=== PATIENT | male | born 1945 | race Caucasian/White ===

== ENCOUNTER 2017-04-25 19:28 | Observation (INO) | payer MEDICARE ==
--- NOTE | 2017-04-25 19:54 | Emergency Department Record ---
History of Present Illness - General Chief Complaint: Chest Pain Stated Complaint: DIZZY/ GERMAN Time Seen by Provider: 04/25/17 19:50 Source: Patient, Family Mode of Arrival: Ambulatory Limitations: No limitations - History of Present Illness Initial Comments: The patient is here with family due to developing CP about an hour ago. He was bending over and then stood up and appeared dizzy and stated he felt like his chest hurt. His family also noted that he appeared to have mild GERMAN. The symptoms only lasted a few minutes and then resolved. The patient now denies any pain, discomfort, or GERMAN. The patient has a hx of being mentally challenged so the hx from him is limited. He has no hx of any cardiac issues and has had no recent illnesses. MD Complaint: Chest pain Onset/Timin -: Minutes(s) Pain Location: Substernal Quality: Heaviness - Related Data Allergies Allergy/AdvReac Type Severity Reaction Status Date / Time No Known Drug Allergies Allergy Unknown Verified 06/22/14 15:41 [NO KNOWN DRUG ALLERGIES] Travel Screening - Travel/Exposure Within Last 30 Days Have you traveled within the last 30 days?: No Review of Systems Constitutional: Denies: Chills, Fever Eyes: Denies: Eye discharge ENT: Denies: Congestion Respiratory: Denies: Cough, Dyspnea Past Medical History - SOCIAL HISTORY Smoking Status: Never smoker Alcohol Use: None Drug Use: None - RESPIRATORY Hx Respiratory Disorders: No - CARDIOVASCULAR Hx Cardio Disorders: No - NEURO Hx Neuro Disorders: Yes Hx Brain Tumor: No Hx CVA: No Hx Dementia: No Hx Dizziness: No Hx Headaches: No Hx Neuropathy: No Hx Parkinson's Disease: No Hx Seizures: No Hx Speech Problem: No Hx TIA: No Comment:: developmentally disabled - GI Hx GI Disorders: Yes Hx Reflux: Yes - Hx Genitourinary Disorders: No - ENDOCRINE Hx Endocrine Disorders: No - MUSCULOSKELETAL Hx Musculoskeletal Disorders: No - PSYCH Hx Psych Problems: Yes Hx Behavior Problems: Yes (takes meds) - HEMATOLOGY/ONCOLOGY Hx Hematology/Oncology Disorders: No Family Medical History Any Significant Family History?: Yes Family Hx Comment (NOT TO BE USED IN PLACE OF ITEMS BELOW): Parkinson's disease Hx Anxiety: Mother Hx Cancer: Mother Hx Depression: Mother Hx Liver Disease: Mother Physical Exam - General General Appearance: Alert, Cooperative, No acute distress - Head Head exam: Atraumatic, Normocephalic - Eye Eye exam: Normal appearance, PERRL - ENT Throat exam: Normal inspection. negative: Tonsillar erythema, Tonsillar exudate - Neck Neck exam: Normal inspection, Full ROM. negative: Tenderness - Respiratory Respiratory exam: Normal lung sounds bilaterally. negative: Respiratory distress - Cardiovascular Cardiovascular Exam: Regular rate, Normal rhythm, Normal heart sounds - GI/Abdominal GI/Abdominal exam: Soft, Normal bowel sounds. negative: Tenderness - Extremities Extremities exam: Normal inspection, Full ROM, Normal capillary refill. negative: Tenderness - Neurological Neurological exam: Alert. negative: Motor sensory deficit Course Vital Signs 04/25/17 19:41 Temperature 97.6 F Pulse Rate [ 73 Torch Straightener ] Respiratory 18 Rate Blood Pressure 177/91 [Left Arm] Pulse Ox 98 - Reevaluation(s) Reevaluation #1: The patient is doing very well at this time. He is resting comfortably in no distress. The pain seems to be intermittent and presently is gone. 04/25/17 20:26 Reevaluation #2: The patient is doing very well. He is pain free at this time. I did explain the results to the patient and family and did recommend a short stay admission for monitoring and further blood testing. The family did agree to the plan. I also did discuss the case with Faby PEÑA) and she did accept the admission. 04/25/17 21:18 Medical Decision Making - Data Complexity MDM Data: Labs Ordered and/or Reviewed, X-Ray Ordered and/or Reviewed, EKG Ordered and/or Reviewed - Lab Data Result diagrams: 04/25/17 20:00 04/25/17 20:00 - EKG Data -: EKG Interpreted by Me EKG: No Acute Changes, Unchanged From Previous - Radiology Data Radiology results: Report reviewed (CXR: Neg per rad.) Disposition Disposition: Admit Clinical Impression: Chest pain at rest Disposition: Still a Patient at [facility] Decision to Admit: Admit from ER Decision to Admit Date: 04/25/17 Decision to Admit Time: 21:19 Accepting Physician: Paige Time Discussed w/Accepting Physician: 21:19 Condition: (2) Stable Time of Disposition: 21:19 Quality - Quality Measures Quality Measures: N/A - Blood Pressure Screening View Details: Yes Does Patient Have Any of the Following: No Blood Pressure Classification: Pre-Hypertensive BP Reading Systolic Measurement: 157 Diastolic Measurement: 80 Screening for High Blood Pressure: < Pre-Hypertensive BP, F/U Documented > [ [id number]] Pre-Hypertensive Follow-up Interventions: Referral to alternative/primary care provider.
[2017-04-25 20:09] LABS: BASO % 0.3 % (0-6); EOS % 1.4 % (0-6); GRAN % 70.2 % (47-80); HEMATOCRIT 42.9 % (42.0-52.0); HEMOGLOBIN 14.3 gm/dl (14.0-18.0); LYMPH % 19.9 % (16-45); MEAN CELL VOLUME 88.1 fl (81-97); MEAN CORPUSCULAR HEMOGLOBIN 29.4 pg (27-33); MEAN CORPUSCULAR HGB CONC 33.3 g/dl (32-36); MEAN PLATELET VOLUME 9.2 fl (7.4-10.4); MONO % 8.2 % (0-9); PLATELET COUNT 301 K/uL (130-400); RED BLOOD COUNT 4.87 M/uL (4.40-5.70); RED CELL DISTRIBUTION WIDTH 14.2 % (11.5-14.5); WHITE BLOOD COUNT W/O DIFF 8.6 K/uL (4.2-12.2)
[2017-04-25 20:21] LABS: BLOOD UREA NITROGEN 26 mg/dL (8-23); CREATININE 1.1 mg/dL (0.7-1.2); EST GLOMERULAR FILTRATION RATE > 60 mL/min; INR 0.94; PARTIAL THROMBOPLASTIN TIME 24.5 SECONDS (24.5-39.1); PROTHROMBIN TIME (PATIENT) 10.1 SECONDS (9.5-12.1)
[2017-04-25 20:24] LABS: GLUCOSE,RANDOM 117 mg/dL (74-109)
[2017-04-25 20:27] LABS: CREATINE PHOSPHOKINASE 61 U/L (39-308)
[2017-04-25] MEDS ORDERED: ASPIRIN 325 MG TABLET PO ONE (21:00)
--- NOTE | 2017-04-25 21:15 | RADIOLOGY REPORT ---
EXAM: CHEST 2 VIEWS HISTORY: PATIENT HAS SHORTNESS OF BREATH, FAINTING. MEDIASTINAL CHEST PAIN. TECHNIQUE: Two views of the chest are provided without comparison examinations. FINDINGS: The cardiac silhouette is within normal limits for size and contour. Mild ectasia of the thorcic aorta is noted. There is no radiographic evidence of a focal infiltrate, pleural effusion, or pneumothorax. IMPRESSION: NO RADIOGRAPHIC EVIDENCE OF AN ACUTE INTRATHORACIC PROCESS. JOB NUMBER: [id number] MTDD
[2017-04-25] MEDS ORDERED: ACETAMINOPHEN 500 MG TABLET PO PRN (22:24)
[2017-04-25] MEDS ORDERED: FLU VAC QS 2017-18 (INPT, 6MO+) 60MCG/0.5ML IM ONE (22:48)
[2017-04-26] MEDS ORDERED: PANTOPRAZOLE SODIUM 40 MG TABLET PO SCH (07:00)
--- NOTE | 2017-04-26 07:32 | History & Physical ---
History of Present Illness - Date of Service Date of Service for History & Physical: 04/26/17 - History of Present Illness Admitting Diagnosis: 1. Chest pain, R/O [place]. History of Present Illness: 71yo male with CC of chest pain. He has history of developmental delay, GERD, anxiety disorder. The patient is here with family due to developing CP while bending over. He was bending over and then stood up and appeared dizzy and stated he felt like his chest hurt. His family also noted that he appeared to have mild GERMAN. The symptoms only lasted a few minutes and then resolved. Family was worried so brought him to the ED. While in the ED, patient had EKG that was unchanged from previous in june 2014. No ST changes. 1st set of CE returned wnl. CXR showed no acute process. CBC and CMP were unremarkable. DDimer was wnl. BNP was 379. Patient was admitted for serial enzymes and continued monitoring. 04/26/17- Patient states he is feeling well. When asked if he is having pain in his chest he says no and when asked if his belly hurts he also says no. Family at bedside says he had one episode of vomiting yesterday. They had been at a [employer] and state he ate a lot of food, more than normal and that he has a history of a hernia and reflux. He has not complained of pain in his chest or belly throughout the night or today. He ate his breakfast without issue. He has been urinating normally and had a bowel movement this morning. pcp: [facility] Travel Screening - Travel/Exposure Within Last 30 Days Have you traveled within the last 30 days?: No - Travel/Exposure Within Last Year Have you traveled outside the [place] in the last year?: No - Additonal Travel Details Have you been exposed to anyone with a communicable illness?: No - Travel Symptoms Symptom Screening: None Review of Systems Constitutional: Denies: Chills, Fever Eyes: Denies: Eye discharge ENT: Denies: Congestion Respiratory: Denies: Cough, Dyspnea Cardiovascular: Reports: Chest pain Past Medical History - SOCIAL HISTORY Smoking Status: Never smoker Alcohol Use: None Drug Use: None - RESPIRATORY Hx Respiratory Disorders: No - CARDIOVASCULAR Hx Cardio Disorders: No - NEURO Hx Neuro Disorders: Yes Hx Brain Tumor: No Hx CVA: No Hx Dementia: No Hx Dizziness: No Hx Headaches: No Hx Neuropathy: No Hx Parkinson's Disease: No Hx Seizures: No Hx Speech Problem: No Hx TIA: No Comment:: developmentally disabled - GI Hx GI Disorders: Yes Hx Reflux: Yes - Hx Genitourinary Disorders: No - ENDOCRINE Hx Endocrine Disorders: No - MUSCULOSKELETAL Hx Musculoskeletal Disorders: No - PSYCH Hx Psych Problems: Yes Hx Behavior Problems: Yes (takes meds) - HEMATOLOGY/ONCOLOGY Hx Hematology/Oncology Disorders: No Family Medical History Any Significant Family History?: Yes Family Hx Comment (NOT TO BE USED IN PLACE OF ITEMS BELOW): Parkinson's disease Hx Anxiety: Mother Hx Cancer: Mother Hx Depression: Mother Hx Liver Disease: Mother H&P Meds/Allergies - Allergies Allergies: Allergies Allergy/AdvReac Type Severity Reaction Status Date / Time No Known Drug Allergies Allergy Unknown Verified 06/22/14 15:41 [NO KNOWN DRUG ALLERGIES] - Active Medications Active Medications: Current Medications Acetaminophen (Tylenol 500mg Tab) 500 mg PO Q6H PRN PRN Reason: PAIN/TEMP Aspirin (Ecotrin (Ec)) 325 mg PO DAILY ELOISA Fluoxetine HCl (Prozac) 20 mg PO BID ELOISA Pantoprazole Sodium (Protonix) 40 mg PO DAILYAC ELOISA Last Admin: 04/26/17 07:05 Dose: 40 mg Physical Exam - Vital Signs Vital Signs: Vital Signs - Last 24 Hrs Temp Pulse Resp BP BP Pulse Ox 04/26/17 04:17 98.6 F 62 18 145/85 96 04/26/17 00:24 98.4 F 65 18 159/87 98 04/25/17 22:25 99.0 F 65 20 157/80 96 04/25/17 22:17 98.4 F 63 20 166/91 98 - General General Appearance: Alert, Cooperative, No acute distress Limitations: No limitations - Head Head exam: Atraumatic, Normocephalic - Eye Eye exam: Normal appearance, PERRL - ENT Throat exam: Normal inspection. negative: Tonsillar erythema, Tonsillar exudate - Neck Neck exam: Normal inspection, Full ROM. negative: Tenderness - Respiratory Respiratory exam: Normal lung sounds bilaterally. negative: Respiratory distress - Cardiovascular Cardiovascular Exam: Regular rate, Normal rhythm, Normal heart sounds - GI/Abdominal GI/Abdominal exam: Soft, Normal bowel sounds. negative: Guarding, Rebound, Rigid, Tenderness - Extremities Extremities exam: Normal inspection, Full ROM, Normal capillary refill. negative: Tenderness - Neurological Neurological exam: Alert, Normal gait. negative: Motor sensory deficit - Psychiatric Psychiatric exam: Normal affect, Normal mood Results - Labs Result Diagrams: 04/25/17 20:00 04/25/17 20:00 Labs Last 24 Hours: Laboratory Results - last 24 hr 04/26/17 04:05 CK-MB (CK-2) 2.0 Troponin T < 0.010 - Imaging and Cardiology Chest x-ray Status: Report reviewed (no acute process) VTE H&P Assessment - Risk for VTE Risk for VTE: Yes Risk Level: High Risk Assessment Date: 04/26/17 Risk Assessment Time: 07:29 VTE Orders Placed or Will Be Placed: Yes Plan - Detailed Diagnosis and Plan (1) Chest pain at rest Current Visit: Yes Status: Acute Base Code: R07.9 - CHEST PAIN, UNSPECIFIED Comment: 04/26/17- resolved. one episode of atypical cp yesterday. CXR showed NAP. DDimer wnl. BNP 379. cbc and cmp unremarkable. 1st and 2nd set of CE returned wnl and EKG remains unchanged. Patient's age is his only cardiac risk factor. -continue tele -continue serial enzymes -vitals q8H (2) Full code status Current Visit: Yes Status: Acute Base Code: Z78.9 - OTHER SPECIFIED HEALTH STATUS Comment: 04/26/17- patient is full code (3) DVT prophylaxis Current Visit: Yes Status: Acute Base Code: [id number] - Comment: 04/26/17- patient is high risk with age. -lovenox 40mg sq daily
[2017-04-26] MEDS ORDERED: FLUOXETINE HCL 20 MG CAPSULE PO SCH (10:00)
[2017-04-26] MEDS ORDERED: ASPIRIN 325 MG TAB ENTERIC-COATED PO SCH (10:00)
--- NOTE | 2017-04-26 11:33 | Discharge Summary ---
Providers Discharge Summary Date: 04/26/17 Date of admission: 04/25/17 22:15 Expected Date of Discharge: 04/26/17 Attending physician: Saul Gibson Primary care physician: RASHEL ROSS D.O. Physical Exam - Vital Signs Vital Signs: Vital Signs - Last 24 Hrs Temp Pulse Pulse Resp BP BP Pulse Ox 04/26/17 07:31 97.9 F 61 18 134/88 95 04/26/17 04:17 98.6 F 62 18 145/85 96 04/26/17 00:24 98.4 F 65 18 159/87 98 04/25/17 22:25 99.0 F 65 20 157/80 96 04/25/17 22:17 98.4 F 63 20 166/91 98 - General General Appearance: Alert, Cooperative, No acute distress Limitations: No limitations - Head Head exam: Atraumatic, Normocephalic - Eye Eye exam: Normal appearance, PERRL - ENT Throat exam: Normal inspection. negative: Tonsillar erythema, Tonsillar exudate - Neck Neck exam: Normal inspection, Full ROM. negative: Tenderness - Respiratory Respiratory exam: Normal lung sounds bilaterally. negative: Respiratory distress - Cardiovascular Cardiovascular Exam: Regular rate, Normal rhythm, Normal heart sounds - GI/Abdominal GI/Abdominal exam: Soft, Normal bowel sounds. negative: Guarding, Rebound, Rigid, Tenderness - Extremities Extremities exam: Normal inspection, Full ROM, Normal capillary refill. negative: Tenderness - Neurological Neurological exam: Alert, Normal gait. negative: Motor sensory deficit - Psychiatric Psychiatric exam: Normal affect, Normal mood Hospitalization - Hospitalization Admission Diagnosis: 1. Chest pain, R/O [place]. - Problem List/Discharge Diagnosis (1) Chest pain at rest Current Visit: Yes Status: Acute Base Code: R07.9 - CHEST PAIN, UNSPECIFIED Comment: 04/26/17- resolved. one episode of atypical cp yesterday. CXR showed NAP. DDimer wnl. BNP 379. cbc and cmp unremarkable. 3 sets of CE returned wnl and EKG remains unchanged. Patient's age is his only cardiac risk factor. History from family suggests reflux as cause of his symptoms. he tolerated breakfast well today and having normal BM. -will plan to discharge home today -follow up wtih Dr. Ross in 7-10 days -continue omeprazole 20mg daily (2) Full code status Current Visit: Yes Status: Acute Base Code: Z78.9 - OTHER SPECIFIED HEALTH STATUS Comment: 04/26/17- patient is full code (3) DVT prophylaxis Current Visit: Yes Status: Acute Base Code: [id number] - Comment: 04/26/17- patient is high risk with age. -lovenox 40mg sq daily - Hospitalization Course Disposition: Home, Self-Care Hospital Course: 71yo male with CC of chest pain. He has history of developmental delay, GERD, anxiety disorder. The patient is here with family due to developing CP while bending over. He was bending over and then stood up and appeared dizzy and stated he felt like his chest hurt. His family also noted that he appeared to have mild GERMAN. The symptoms only lasted a few minutes and then resolved. Family was worried so brought him to the ED. While in the ED, patient had EKG that was unchanged from previous in june 2014. No ST changes. 1st set of CE returned wnl. CXR showed no acute process. CBC and CMP were unremarkable. DDimer was wnl. BNP was 379. Patient was admitted for serial enzymes and continued monitoring. 04/26/17- Patient states he is feeling well. When asked if he is having pain in his chest he says no and when asked if his belly hurts he also says no. Family at bedside says he had one episode of vomiting yesterday. They had been at a [employer] party and state he ate a lot of food, more than normal and that he has a history of a hernia and reflux. He has not complained of pain in his chest or belly throughout the night or today. He ate his breakfast without issue. He has been urinating normally and had a bowel movement this morning. pcp: [facility] Condition at Discharge: (2) Stable Discharge Medications - Discharge Medications Home Medications: Ambulatory Orders Fluoxetine HCl 20 mg PO BID 06/22/14 [Last Taken 06/21/14] Omeprazole [Prilosec] 20 mg PO DAILY 06/22/14 [Last Taken 06/21/14] Discharge Plan - Discharge Instructions Activity at Discharge: Resume Usual Activities As Tolerated Diet at Discharge: Advance to Usual Diet Instructions: Chest Pain (ED), Diet for Stomach Ulcers and Gastritis (GEN) Additional Instructions: Follow up with Dr. Ross in 7-10 days continue prilosec 20mg by mouth daily Stick to a bland diet for the next few days and then may advance as tolerating Please call with any questions or concerns Return to ED for any new or worsening symptoms Quality Measures - Quality Measures Quality Measures: Advance Directives, Documentation of Current Medications in Medical Record, Elder Maltreatment Screen and Follow-Up Plan, Screening for High Blood Pressure and F/U Documented - Current Medications Quality Measure: Measure #130: Documentation of Current Medications Documentation of Current Medications: <Current Medications Documented/Reviewed> [[id number]] - Blood Pressure Screening Quality Measure: Screening for High Blood Pressure and Follow-Up Documented Does Patient Have Any of the Following: No Blood Pressure Classification: Pre-Hypertensive BP Reading Systolic Measurement: 134 Diastolic Measurement: 88 Screening for High Blood Pressure: < Pre-Hypertensive BP, F/U Documented > [ L0877] Pre-Hypertensive Follow-up Interventions: Referral to alternative/primary care provider. - Advance Directives Quality Measure: Measure #47: Care Plan Advance Directives Established: No Advance Directives Information Provided To Patient: Yes Advance Directives on File: No Living Will: No Power of Cardroom Manager: Yes Power of Cardroom Manager Name: Sofyajose Odensandoval Advance Care Planning: <Care Plan/Decision Maker Documented; Discussed & Documented> [[id number]] - Elder Abuse Suspicion Index Screening: Elder Abuse Suspicion Index Screening Rely on people for bathing, dressing, shopping, banking, etc: Did Not Answer Prevented from getting food, clothes, medication, etc: Did Not Answer Made to feel shamed or threatened by someone: Did Not Answer Forced to sign papers or use money against will: Did Not Answer Feel afraid, touched in ways not wanted or hurt physically: Did Not Answer Poor eye contact, withdrawn, malnourished, cuts or bruises: Did Not Answer Screening Result: Negative result EASI Reference Information: Loco PLUNKETT, Doris C, Hanna D, Dylan M.Development and validation of a tool to assist physicians identification of elder abuse: The Elder Abuse Suspicion Index (EASI ). Journal of Elder Abuse and Neglect, 2008; 20 (3): 276-300. - Elder Maltreatment Screen Quality Measures: Elder Maltreatment Screen and Follow-Up Plan Elder Maltreatment Screen: <Negative, No Follow-Up Plan Required> [G8734]
[2017-04-26 12:23] LABS: CKMB 1.8 ng/mL (<6.73)
== END 2017-04-26 12:52 | disposition home or self-care (01) ==
LOC: ER 19:28 → MEDSURG 22:15
PROVIDERS: ADMIT Internal Medicine; ATTEND Internal Medicine
DX: R07.9 Chest pain, unspecified (principal); Z78.9 Other specified health status; K21.9 Gastro-esophageal reflux disease without esophagitis; F41.9 Anxiety disorder, unspecified
CPT/HCPCS: 71020; 80048; 82550; 82553; 83880; 84484; 85025; 85379; 85610; 85730; 93005; 93010; 93041; 94620; 99220; 99285